=== PATIENT | male | born 1990 | race Caucasian/White ===

== ENCOUNTER 2024-03-22 22:59 | Emergency (ER) | payer SELFPAY ==
[~2024-03-22] VITALS: Ht 185.4 cm; Wt 91.0 kg
[2024-03-22 23:09] VITALS: TEMP 98.9; O2SAT 97
[2024-03-22 23:49] VITALS: BP 115/58; PULSE 103; RESP 19; O2SAT 98
[2024-03-22 23:58] LABS: CLARITY URINE CLEAR (CLEAR); COLOR URINE YELLOW (YELLOW); GLUCOSE URINE NEGATIVE (NEGATIVE); KETONES URINE NEGATIVE (NEGATIVE); LEUKOCYTE ESTERASE URINE NEGATIVE (NEGATIVE); NITRITE URINE NEGATIVE (NEGATIVE); OCCULT BLOOD URINE TRACE (NEGATIVE); PROTEIN URINE NEGATIVE (NEGATIVE); SPECIFIC GRAVITY URINE 1.005 (1.005-1.030); UROBILINOGEN URINE 0.2 E.U./dL (0.2-1.0)
[2024-03-23 00:05] LABS: *AMPHETAMINES SCREEN URINE NEGATIVE (NEGATIVE); *BARBITURATES SCREEN URINE NEGATIVE (NEGATIVE); *BENZODIAZEPINES SCREEN URINE NEGATIVE (NEGATIVE); *COCAINE SCREEN URINE NEGATIVE (NEGATIVE); METHADONE URINE SCREEN NEGATIVE (NEGATIVE)
[2024-03-23 00:06] LABS: CANNABINOID URINE SCREEN NEGATIVE (NEGATIVE); ECSTASY MDMA SCREEN URINE NEGATIVE (NEGATIVE); OPIATES URINE SCREEN NEGATIVE (NEGATIVE); PHENCYCLIDINE URINE SCREEN NEGATIVE (NEGATIVE)
[2024-03-23 00:19] LABS: BASOPHILS % 0.5 % (0.0-2.0); EOSINOPHILS % 0.7 % (0.0-5.0); HEMATOCRIT. 44.2 % (42.0-52.0); HEMOGLOBIN. 14.6 g/dL (14.0-18.0); LYMPHOCYTES % 25.2 % (20.0-50.0); MEAN CORPUSCULAR HEMOGLOBIN 30.4 pg (28.0-32.0); MEAN CORPUSCULAR HGB CONC 33.1 g/dL (31.0-37.0); MEAN PLATELET VOLUME 7.1 fl (7.4-10.4); MONOCYTES % 4.2 % (2.0-8.0); NEUTROPHILS % 69.4 % (40.0-76.0); PLATELET 317 x1000/uL (130-400); RED BLOOD CELL COUNT 4.81 mill/uL (4.7-6.1); RED CELL DISTRIBUTION WIDTH 14.3 % (11.6-14.6); WHITE BLOOD COUNT 9.4 x1000/uL (4.5-11.0)
[2024-03-23 00:26] LABS: CHLORIDE 109 mEq/L (98-107); POTASSIUM 3.4 mEq/L (3.5-5.1); SODIUM 143 mEq/L (136-145)
[2024-03-23 00:27] LABS: CALCIUM 9.8 mg/dL (8.7-10.4); CARBON DIOXIDE 24 mEq/L (21-32)
[2024-03-23 00:32] LABS: GLUCOSE 106 mg/dL (70-105); UREA NITROGEN BLOOD 7 mg/dL (9-23)
[2024-03-23 00:34] LABS: ACETAMINOPHEN < 2 ug/mL (10-30); AMMONIA < 17 uMol/L (<32); CREATINE KINASE 168 IU/L (46-171)
[2024-03-23 00:42] LABS: ETHANOL BLOOD 349 mg/dL (<10)
[2024-03-23 00:59] LABS: BACTERIA URINE NONE SEEN; RBC URINE NONE SEEN /hpf (0-2); SQUAMOUS EPITHELIAL CELL URINE FEW /lpf (RARE/1+); WBC URINE 0-2 /hpf (0-2)
== END 2024-03-23 02:24 | disposition home or self-care (01) ==
LOC: ER 23:28
DX: F10.129 Alcohol abuse with intoxication, unspecified (principal); F12.10 Cannabis abuse, uncomplicated; F17.210 Nicotine dependence, cigarettes, uncomplicated; Y90.8 Blood alcohol level of 240 mg/100 ml or more
CPT/HCPCS: 36415; 80048; 80305; 80307; 80320; 80329; 81003; 82140; 82550; 85025; 99283; G0480